=== PATIENT | female | born 2000 | race Caucasian/White ===

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

== ENCOUNTER → 2024-03-17 | Outpatient (CLI) | payer OTHER, MEDICAID, SELFPAY ==
--- NOTE | 2024-03-17 15:29 | US_ITS ---
STUDY: SECOND AND THIRD TRIMESTER OBSTETRICAL ULTRASOUND REASON FOR EXAM: Female, 23 years old Supervision of other high risk pregnancies, first trimester, 10 w LMP: 10/21/2023 TECHNIQUE: Transabdominal TECHNICAL QUALITY: Adequate. PRIOR ULTRASOUND: None. FINDINGS: There is a single intrauterine fetus. The fetus is in a transverse lie with the head on the maternal right side. There is demonstrated cardiac activity with a heart rate of 144 bpm. There is a normal amniotic fluid volume. The largest amniotic fluid pocket measures 3.9 cm. The amniotic fluid index (NAJMA) is cm. The placenta is anterior and low lying but not previa in location. There are Grade 0 placental changes. The cervix measures 3.6 cm in length. The bilateral adnexal regions are normal. BIOMETRY: BPD: 4.7 cm: 20 weeks, 2 days HC: 17.8 cm: 20 weeks, 2 days AC: 15.8 cm: 20 weeks, 6 days FL: 3.4 cm: 20 weeks, 4 days CI: 73.99 FL/BPD: 71.20 FL/HC: 18.80 FL/AC: 21.28 HC/AC: 1.13 age by current US: 20 weeks, 5 days. CATHY by current US: 07/30/2024. Estimated weight: 370 grams, +/- 55 grams, 23 %. age by prior US: weeks, days. CATHY by prior US: . Age by LMP: 21 weeks, 1 days. CATHY by LMP: 07/27/2024. ANATOMY: Gender: Male Cranium: Normal lateral ventricles. Normal choroid plexus. Normal cerebellum. Normal cisterna magna. Normal face, nose and lips. Chest: Normal 4-chamber heart. Abdomen/Pelvis: Normal diaphragm. Normal stomach. Normal abdominal wall. Normal cord insertion. Normal 3 vessel cord. Normal kidneys. Normal bladder. Spine: Normal cervical spine. Normal thoracic spine. Normal lumbar spine. Normal sacrum. Extremities: Normal bilateral upper extremities. Normal bilateral lower extremities. US/OB Anatomy w/ Transvaginal IMPRESSION: Living intrauterine of 20 weeks 5 days as described above. Electronically Signed: Edvin Biswas MD at 13:00 EST , Refer to OB ultrasound. Electronically Signed: Edvin Biswas MD at 13:00 EST ,
== END | disposition home or self-care (01) ==
PROVIDERS: Referring Provider Advanced Practice Midwife; Visit Provider Advanced Practice Midwife
DX: O09.891 Supervision of other high risk pregnancies, first trimester (principal); Z3A.10 10 weeks gestation of pregnancy
CPT/HCPCS: 76805; 76817

== ENCOUNTER 2024-06-27 16:02 | Inpatient (IN) | payer OTHER, MEDICAID, SELFPAY ==
[2024-06-27] VITALS (27 sets, daily range): BP systolic 102–156; BP diastolic 69–99; PULSE 60–90; RESP 12–21; TEMP 36.3–37.1; O2SAT 97–100; BMI 31.4
[2024-06-27 12:19] LABS: Hematocrit 35.2 % (37-47); Hemoglobin 12.2 g/dL (12.0-15.0); Mean Corp Hgb Conc 34.7 g/dL (32-36); Mean Corpuscular Volume 86.7 fL (81-99); Mean Platelet Vol. 11.1 fl (6.2-12.0); Platelet Count 204 K/mm3 (150-450); RBC Distribution Width CV 12.8 % (11.6-14.6); RBC Distribution Width SD 39.8 fl (35.1-43.9); Red Blood Count 4.06 M/mm3 (4.2-5.4); White Blood Count 7.3 K/mm3 (4.4-11.0)
[2024-06-27 12:29] LABS: AST(SGOT) 18 U/L (<=31); Alanine Aminotransfer ALT/SGPT 14 U/L (<=34); Creatinine, Serum 0.69 mg/dL (0.70-1.20); EST Glomerular Filtration Rate 124 (>60); Estimated Creatinine Clearance 135.94 ml/min (50-250)
[2024-06-27 12:46] LABS: Uric Acid 5.7 mg/dL (2.6-6.0)
[2024-06-27 12:57] LABS: Protein:Creat Ratio 3651 mg/g CRE (0-200)
[2024-06-27] MEDS: Betamethasone/Betamethasone 30 MG/5 ML Vial 12 MG IM (14:49)
--- NOTE | 2024-06-27 15:34 | PCM.HP.OB ---
HPI - General General Date of Service: 06/27/24 Chief Complaint: elevated blood pressure and headache HPI Narrative ILANA BIGGS, is a 24 F who presents from home with a headache and elevated blood pressure. She reports she has had mild FONSECA's daily for 1 week. She did not have her caffeine this morning, which usually helps. The FONSECA is still mild and not bothersome for her. She denies vision changes, RUQ pain, nausea, vomiting. No pain, vb, lof. Good FM. PFSH PFSH Home Medications ?Medication ?Instructions ?Recorded ?Last Taken ?Type Ortho Tri-Cyclen 28 Tablet 1 tab PO DAILY 01/21/15 Unknown History Allergy/AdvReac Type Severity Reaction Status Date / Time Sulfa (Sulfonamide Allergy Hives Verified 06/27/24 11:56 Antibiotics) Social History Smoking Status: Unknown if ever smoked NST FHR Rate Baby A Baseline: 140 Variability:: Minimal and Moderate Accelerations:: 15 x 15 Decelerations:: Variable (isolated) Uterine Activity:: no ctx's Vital Signs Vital Signs Vital Signs: 06/27/24 11:54 06/27/24 11:54 06/27/24 11:54 Temperature Temperature Source Temporal Pulse Rate 69 Respiratory Rate Blood Pressure 132/86 H BP Systolic 132 BP Diastolic 86 Pulse Ox 06/27/24 11:54 06/27/24 11:54 06/27/24 11:55 Temperature 98.3 F Temperature Source Pulse Rate 72 Respiratory Rate 17 Blood Pressure BP Systolic BP Diastolic Pulse Ox 06/27/24 11:55 06/27/24 12:09 06/27/24 12:09 Temperature Temperature Source Pulse Rate 67 Respiratory Rate Blood Pressure 131/89 H BP Systolic 131 BP Diastolic 89 Pulse Ox 98 06/27/24 12:26 06/27/24 12:26 06/27/24 12:39 Temperature Temperature Source Pulse Rate 60 Respiratory Rate Blood Pressure 138/88 H 156/95 H BP Systolic 138 156 BP Diastolic 88 95 Pulse Ox 06/27/24 12:39 06/27/24 12:48 06/27/24 12:48 Temperature Temperature Source Pulse Rate 61 70 Respiratory Rate Blood Pressure 142/89 H BP Systolic 142 BP Diastolic 89 Pulse Ox 06/27/24 12:54 06/27/24 12:54 06/27/24 13:09 Temperature Temperature Source Pulse Rate 64 Respiratory Rate Blood Pressure 136/87 H 145/94 H BP Systolic 136 145 BP Diastolic 87 94 Pulse Ox 06/27/24 13:09 06/27/24 13:26 06/27/24 13:26 Temperature Temperature Source Pulse Rate 66 67 Respiratory Rate Blood Pressure 141/92 H BP Systolic 141 BP Diastolic 92 Pulse Ox 06/27/24 14:53 06/27/24 14:53 Temperature Temperature Source Pulse Rate 63 Respiratory Rate Blood Pressure 126/80 H BP Systolic 126 BP Diastolic 80 Pulse Ox Weight Weight: 189 lb Body Mass Index (BMI) 31.4 Labs Labs Labs: Hct 35.2 % (37-47) L Hgb 12.2 g/dL (12.0-15.0) Obstetrics Ultrasound Assessment & Plan (1) 35 weeks gestation of : (2) IUGR (intrauterine growth restriction): PLAN: EFW on 06/17/24 was 1781 grams at the 2% and AC 1% CEFM (3) Elevated blood pressure reading: PLAN: BP's normal to mild range. P/c ratio elevated. No evidence for severe pre eclampsia at this time. Admit for close observation of BP's and symptoms. BMZ for lung maturity. SCD's for DVT prophylaxis. Ok for regular diet since BP's normal to mild range. Update given to Dr. Lind provider second class welder who will contact [facility] for any further recommendations, and delivery timing. Dr. Lind resuming care. (4) History of section: PLAN: Planning repeat C/S (5) Headache:
[2024-06-27] MEDS: Lactated Ringers 1,000 ML 999 ML IV (16:50)
[2024-06-27] MEDS: Acetaminophen 500 MG Tablet 1000 MG PO ×2 (16:53→23:24)
[2024-06-27 17:12] LABS: Absolute Lymphocyte Count 1.85 X10^3/uL (0.83-4.51); Absolute Neutrophil Count 9.1 X10^3/uL (2.0-7.7); Basophil# 0.03 X10^3/uL; Basophil% 0.3 % (0-1); Eosinophil# 0.13 X10^3/uL; Eosinophils% 1.1 % (0-5); Hematocrit 37.9 % (37-47); Hemoglobin 13.5 g/dL (12.0-15.0); Lymphocyte # 1.85 X10^3/ul (0.83-4.51); Lymphocyte % 16.1 % (19-41); Mean Corp Hgb Conc 35.6 g/dL (32-36); Mean Corpuscular Hgb 30.3 pg (27.0-32.0); Mean Corpuscular Volume 85.2 fL (81-99); Mean Platelet Vol. 11.2 fl (6.2-12.0); Monocyte# 0.33 X10^3/uL; Monocyte% 2.9 % (0-10); NRBC Flagged by Analyzer 0 % (0-5); Neutrophil # 9.07 X10^3/uL (2.7-7.7); Neutrophil % 79.1 % (47-70); Platelet Count 230 K/mm3 (150-450); RBC Distribution Width CV 12.9 % (11.6-14.6); RBC Distribution Width SD 39.8 fl (35.1-43.9); Red Blood Count 4.45 M/mm3 (4.2-5.4); White Blood Count 11.5 K/mm3 (4.4-11.0)
--- NOTE | 2024-06-27 18:00 | PCM.PN.BLA ---
Progress Note pt admitted for mild range BPs with mild FONSECA after tylenol. IUGR 2% with AC 2%. FHR tracing with minimal variability- episodes of moderate but did have 2 varibale decelerations noted. Plan for repeat CS- MFM Dr. Davila in agreement. Pt was counseled on risks/benefits. all questions answered.
[2024-06-27 18:08] LABS: Syphilis Antibodies Nonreactive (Nonreactive)
[2024-06-27] MEDS: Cefazolin 2 GM in Syringe IV (18:10)
--- NOTE | 2024-06-27 18:25 | PLAC_PTH ---
PATIENT: ILANA BIGGS LOC: [facility] U#:[id number] AGE/SX: 24 ROOM: WP012 RE06/27/[address]: Dr. Shantell Kruger, : 2000 BED: 1 DIS: 06/30/2024 SPEC #: [id number] RECD: 06/27/24 20:30 STATUS: YOU JUAN F #: [id number] LAVELL: 06/27/24 18:[address]: Vanessa Mahajan DEPT: SURGICAL PATHOLOGY RECD BY: Carmen Parker ENTERED: 06/30/24 08:33 SP TYPE: PLACENTA OTHR DR: Dr. Shantell Kruger, DO No Primary Care Phys Tissues: A - Placenta, NOS Procedures: Surgery Specimen Level V HEADER OPERATION: Repeat section PRE-OP DIAGNOSIS: TISSUE SUBMITTED: A- Placenta MICROSCOPIC DIAGNOSIS A. Placenta, (35 weeks), repeat section: * Elizabeht placenta (293 grams) - see note. * 3 vessel umbilical cord without inflammation. * Chorioamnion without inflammation. * Mature chorionic villi with focal infarction (involving less than 5% of the disc), with increased syncytial knots. Note: The weight is approximately the 10th percentile for 35 weeks gestation. MICROSCOPIC DESCRIPTION Slides are reviewed. GROSS DESCRIPTION A. Received in formalin in a container labeled with the patient's name, date of , and with no further designation is a 17.5 x 11.0 x 2.0 cm elizabeth discoid placenta with a trimmed weight of 293 g. The eccentrically located white-martinez umbilical cord exhibits 3 vessels and is 40.0 cm in length by 1.0 cm in diameter. The pink-reyes membranes exhibit 50% marginal insertion and 50% circummarginate insertion. The surface is blue-okeefe with prominent vasculature. The opposing maternal surface exhibits red-okeefe cotyledons that appear complete with a moderate amount of easily removed blood clot material. Serial sections reveal 3 white-martinez, irregular, rubbery foci ranging from 0.8 x 0.7 x 0.7 cm to 2.5 x 1.3 x 1.0 cm (comprising less than 5% of the parenchymal surfaces). The remaining cut surfaces are red and spongy. Tub Tender sections:A1. Umbilical cord and membrane rollA2. Normal full-thickness sectionA3. Full-thickness section with rubbery focus at peripheryA4. Full-thickness section with rubbery focus at midpoint [facility] 06-30-2024 CPT:95455
--- NOTE | 2024-06-27 18:43 | EX.PCM.OBRPT ---
Operative Report (OB) Details Procedure Type: low transverse Date of Procedure: 06/27/24 Procedure Start Time: 18:22 Procedure Stop Time: 18:50 Time of Delivery: 18:25 Pre-Operative Diagnosis: Repeat Elective , Nonreassuring Status and Other Other Pre-Operative diagnosis: 35 weeks, Pre eclampsia w/o severe features , severe IUGR 2%, Cat 2 FHR Post-Operative Diagnosis: Same as Pre-operative diagnosis Classification: BRIDGET Type of Anesthesia: Spinal Antibiotic Given: Ancef 2 grams IV x1 Drain: Park to straight drain Estimated Blood Loss: 500 Fluids Replaced: 1000 Findings Description of surgery: After informed consent was obtained the patient was taken the operating room she was given spinal anesthesia. She was then placed in the supine position. She was prepped and draped in the normal sterile fashion. Anesthesia was found to be adequate. At this time a Pfannenstiel skin incision was made with a knife was carried down to the underlying layer of the fascia. The fascial incision was then extended laterally using price scissor. Attention was then turned to the superior aspect of the fascial edge was grasped with 2 straight Rohith clamps tented up and the rectus muscle dissected off sharply.. Rectus muscles were then in the midline bluntly and peritoneum was entered bluntly. Gentle opposing traction was placed. At this time the vesicouterine peritoneum was identified. Scalpel was used to make a uterine incision in a low transverse fashion. The uterus was then entered bluntly gentle opposing traction was placed to extend this incision. Membranes were ruptured clear. Infant's head was brought to the uterine incision was delivered atraumatically. 2 loose nuchals were noted and reduced. delayed cord clamping performed for approximately 30 seconds. was vigorous at delivery with good tone. Cord was clamped and cut was handed to the waiting nursery team. The Placenta was removed from the uterus. The uterus was then removed from the abdominal cavity. The uterus was cleared of all clots and debris using a lap. At this time the uterine incision was reapproximated using #1 Vicryl in a running locked fashion. Hemostasis was appreciated. Posterior cul-de-sac was then cleared of all clots and debris. Uterus was placed back in the abdominal cavity. Gutters were cleared of all clots and debris. Uterine incision was reevaluated and noted to be of excellent hemostasis. At this time the peritoneum was grasped with Kellys reapproximated using #2 Vicryl suture in a running fashion. Fascia was then reapproximated using #1 Vicryl in a running fashion. Subcu layer was irrigated with NS, reapproximated with #2 0 plain gut suture in an interrupted fashion. Subcu layer was closed using 4-0 Monocrylin a subcu fashion. Dry sterile dressing was applied. Instrument lap needle count correct ?2. Anticipated normal postoperative course. Surgical findings: normal tubes and ovaries Presentation: Vertex Amniotic Membrane Rupture Type: Artificial Amniotic Fluid Description: Clear Placental Delivery Description: Expressed Placenta Disposition: Sent to Pathology Specimen collected: Yes Description of specimen(s) removed: placenta Cord Vessel Description: 3 Vessels Cord Entanglement: Around neck x 2, loose Nuchal Cord Compression: With compression Cord Gases: ABG and VBG Infant A gender: Male (1 minute): 8 (5 minute): 9 Delayed Cord Clamping: Yes Handkerchief Sample Clerk raspberry checker: Yes Vocational Training Director: Shireen Gross Tasks completed by residential living assistant: Opening & closing, Dissecting tissue and Retracting Complications Complications: No
[2024-06-27] MEDS: Oxytocin 15 Units/NS 250ml 15 UNITS/250 ML IV.SOLN 83 UNITS IV (19:05)
[2024-06-27] MEDS: Ketorolac 30 MG/ML Syringe IV (19:24)
[2024-06-28] VITALS (15 sets, daily range): BP systolic 108–163; BP diastolic 65–94; PULSE 70–84; RESP 16–19; TEMP 36.6–37.2; O2SAT 98–99
[2024-06-28] MEDS: 0.9% Saline Lock 10 ML Syringe IV ×4 (01:29→16:11)
[2024-06-28] MEDS: Ketorolac 30 MG/ML Syringe IV ×3 (01:30→16:04)
[2024-06-28] MEDS: Acetaminophen 500 MG Tablet 1000 MG PO ×3 (06:31→19:55)
[2024-06-28] MEDS: Enoxaparin 40 MG/0.4 ML Syringe SC (06:31)
--- NOTE | 2024-06-28 08:00 | PCM.PN.CNM ---
Subjective Subjective Patient seen at bedside. Denies headache, vision changes, SOB or CP. Ambulating and voiding without difficulty. Passing flatus. Lochia decreased. Objective Data Objective Data Vital Signs: Vital Signs Temp Pulse Resp BP Pulse Ox O2 Del Method 98 F 80 19 H 108/73 99 Room Air 06/28/24 03:40 06/28/24 03:40 06/28/24 03:40 06/28/24 03:40 06/28/24 03:40 06/28/24 03:40 Oxygen Delivery Method Room Air Weight: 189 lb Body Mass Index (BMI) 31.4 Intake & Output: Intake and Output for Last 24 Hours 06/26/24 06/27/24 06/28/24 23:59 23:59 23:59 Intake Total 1020 / 1020 250 / 250 Output Total 650 / 650 Balance 370 / 370 250 / 250 Lab / Micro Data Attestation: I reviewed the patient's lab results. 06/27/24 16:50 06/27/24 12:00 Labs: Laboratory Results - last 24 hr 06/27/24 12:00: WBC 7.3, RBC 4.06 L, Hgb 12.2, Hct 35.2 L, MCV 86.7, MCH 30.0, MCHC 34.7, RDW Std Deviation 39.8, RDW Coeff of Lorene 12.8, Plt Count 204, MPV 11.1, Creatinine 0.69 L, Estim Creat Clear Calc 135.94, Est GFR (MDRD) Non-Af 124, Uric Acid 5.7, AST 18, ALT 14, U Random Total Protein 264.0 H, Urine Creatinine 72.30, Protein/Creatinin Ratio 3651 H 06/27/24 16:50: WBC 11.5 H, RBC 4.45, Hgb 13.5, Hct 37.9, MCV 85.2, MCH 30.3, MCHC 35.6, RDW Std Deviation 39.8, RDW Coeff of Lorene 12.9, Plt Count 230, MPV 11.2, Immature Gran % (Auto) 0.500, Neut % (Auto) 79.1 H, Lymph % (Auto) 16.1 L, [place] % (Auto) 2.9, Eos % (Auto) 1.1, Baso % (Auto) 0.3, Absolute Neuts (auto) 9.1 H, Absolute Lymphs (auto) 1.85, Nucleated RBC % 0, Syphilis Total Ab Nonreactive, Blood Type A POSITIVE, Antibody Screen NEGATIVE ROS Eyes Eyes: Denies blurry vision, spots in vision or tunnel vision ENT HEENT: Denies dizziness or headache(s) Cardiovascular Cardiovascular: Reports systems reviewed and no addt'l complaints, except as documented, dizziness and dyspnea Respiratory/Chest Respiratory/Chest: Reports systems reviewed and no addt'l complaints, except as documented Gastrointestinal Gastrointestinal: Reports systems reviewed and no addt'l complaints, except as documented Genitourinary Genitourinary: Reports systems reviewed and no addt'l complaints, except as documented Neurologic Neurologic: Denies abnormal speech, dizziness, headache(s), syncope or vertigo Psychiatric Psychiatric: Reports systems reviewed and no addt'l complaints, except as documented Physical Exam Const alert and no apparent distress General Appearance: cooperative Orientation / Consciousness: awake, oriented to person and oriented to place Exam Limitations: no limitations HEENT normocephalic Eyes General Eye: normal appearance of both eyes Neck full ROM Chest Chest: symmetrical chest wall rise Resp normal respiratory effort, normal air movement and clear to auscultation bilaterally Auscultation: clear to auscultation bilaterally Cardio regular rate and regular rhythm GI normal to inspection, nondistended, normoactive bowel sounds Uterus Palpation: uterus fundus firm Extremity full ROM and no calf tenderness Skin no rashes or lesions noted Neuro oriented x3 Psych mental status grossly normal and activity/motor behavior normal Assessment & Plan (1) Status post delivery: (2) Elevated blood pressure reading: (3) Care and examination of lactating mother: PLAN: Plan POD 1 Repeat C/S Pain control support Blood pressures stable at 108/73- no medications
[2024-06-28] MEDS: Senna/Docusate Sodium 1 Tablet PO (10:47)
[2024-06-28] MEDS: oxyCODONE 5 MG Tablet PO (21:48)
[2024-06-28] MEDS: Ibuprofen 600 MG Tablet PO (22:33)
[2024-06-29] VITALS (9 sets, daily range): BP systolic 127–141; BP diastolic 70–87; PULSE 69–149; RESP 16; TEMP 36.6–37.1; O2SAT 80–100
[2024-06-29] MEDS: Acetaminophen 500 MG Tablet 1000 MG PO ×3 (02:46→16:34)
[2024-06-29] MEDS: Ibuprofen 600 MG Tablet PO ×3 (05:34→20:47)
[2024-06-29] MEDS: Enoxaparin 40 MG/0.4 ML Syringe SC (06:25)
[2024-06-29] MEDS: oxyCODONE 5 MG Tablet PO ×2 (06:30→14:37)
--- NOTE | 2024-06-29 09:11 | PCM.PN.CNM ---
Subjective Subjective Patient seen at bedside. Denies headache, vision changes, SOB or CP. Ambulating and voiding without difficulty. Passing flatus. Lochia decreased. Baby remain in SCN but is stable. Patient without difficulty. Objective Data Objective Data Vital Signs: Vital Signs Temp Pulse Resp BP Pulse Ox O2 Del Method 98.7 F 74 16 128/75 H 99 Room Air 06/29/24 02:45 06/29/24 02:45 06/29/24 02:45 06/29/24 02:45 06/29/24 02:45 06/29/24 02:45 Oxygen Delivery Method Room Air Weight: 189 lb Body Mass Index (BMI) 31.4 Intake & Output: Intake and Output for Last 24 Hours 06/27/24 06/28/24 06/29/24 23:59 23:59 23:59 Intake Total 1020 / 1020 250 / 250 Output Total 650 / 650 400 / 400 Balance 370 / 370 -150 / -150 Lab / Micro Data Attestation: I reviewed the patient's lab results. 06/27/24 16:50 06/27/24 12:00 ROS Eyes Eyes: Denies blurry vision, spots in vision or tunnel vision ENT HEENT: Denies dizziness or headache(s) Cardiovascular Cardiovascular: Reports systems reviewed and no addt'l complaints, except as documented, dizziness and dyspnea Respiratory/Chest Respiratory/Chest: Reports systems reviewed and no addt'l complaints, except as documented Gastrointestinal Gastrointestinal: Reports systems reviewed and no addt'l complaints, except as documented Genitourinary Genitourinary: Reports systems reviewed and no addt'l complaints, except as documented Neurologic Neurologic: Denies abnormal speech, dizziness, headache(s), syncope or vertigo Psychiatric Psychiatric: Reports systems reviewed and no addt'l complaints, except as documented Physical Exam Narrative Dressing dry and intact Const alert and no apparent distress General Appearance: cooperative Orientation / Consciousness: awake, oriented to person and oriented to place Exam Limitations: no limitations HEENT normocephalic Eyes General Eye: normal appearance of both eyes Neck full ROM Chest Chest: symmetrical chest wall rise Resp normal respiratory effort, normal air movement and clear to auscultation bilaterally Auscultation: clear to auscultation bilaterally Cardio regular rate and regular rhythm GI normal to inspection, nondistended, normoactive bowel sounds Uterus Palpation: uterus fundus firm Extremity full ROM and no calf tenderness Skin no rashes or lesions noted Neuro oriented x3 Psych mental status grossly normal and activity/motor behavior normal Assessment & Plan (1) Care and examination of lactating mother: (2) Status post delivery: (3) 35 weeks gestation of : (4) IUGR (intrauterine growth restriction): (5) Elevated blood pressure reading: PLAN: Plan POD 2 Repeat C/S Pain controlled Pumping and taking to [facility] for baby Blood pressures - 120-130's /70's- no severe range pressures Anticipate discharge home / hotel tomorrow
[2024-06-29] MEDS: Senna/Docusate Sodium 1 Tablet PO (09:43)
[2024-06-29] MEDS: Furosemide 20 MG Tablet PO (14:32)
[2024-06-30] VITALS (7 sets, daily range): BP systolic 128–137; BP diastolic 70–97; PULSE 73–87; RESP 16; TEMP 36.7–36.9; O2SAT 98–99
[2024-06-30] MEDS: Acetaminophen 500 MG Tablet 1000 MG PO ×4 (00:26→17:43)
[2024-06-30] MEDS: Ibuprofen 600 MG Tablet PO ×3 (03:22→15:30)
[2024-06-30] MEDS: Enoxaparin 40 MG/0.4 ML Syringe SC (06:17)
[2024-06-30] MEDS: oxyCODONE 5 MG Tablet PO ×2 (08:02→16:57)
--- NOTE | 2024-06-30 08:18 | PCM.PN.OB ---
Subjective Subjective Doing well per patient and nursing staff. Ambulating and taking PO without difficulty. Voiding and passing flatus. Pain controlled. , services for assistance. Denies headache, visual changes, chest pain, shortness of breath, leg pain or increased bleeding. Lochia normal. Objective Data Objective Data Vital Signs: Vital Signs Temp Pulse Resp BP Pulse Ox O2 Del Method 98.3 F 79 16 131/70 H 98 Room Air 06/30/24 03:20 06/30/24 03:20 06/30/24 03:20 06/30/24 03:20 06/30/24 03:20 06/30/24 03:20 Oxygen Delivery Method Room Air Weight: 189 lb Body Mass Index (BMI) 31.4 Intake & Output: Intake and Output for Last 24 Hours 06/28/24 06/29/24 06/30/24 23:59 23:59 23:59 Intake Total 250 / 250 Output Total 400 / 400 2500 / 2500 Balance -150 / -150 -2500 / -2500 Lab / Micro Data 06/27/24 16:50 06/27/24 12:00 ROS Constitutional Constitutional: Reports systems reviewed and no addt'l complaints, except as documented; Denies headache(s) Eyes Eyes: Denies acute decrease in peripheral vision, blurry vision or change in vision ENT HEENT: Reports systems reviewed and no addt'l complaints, except as documented Cardiovascular Cardiovascular: Denies chest pain or dizziness Respiratory/Chest Respiratory/Chest: Denies cough, dyspnea, dyspnea on exertion, shortness of breath at rest or shortness of breath with exertion Gastrointestinal Gastrointestinal: Denies abdominal pain, diarrhea, nausea or vomiting Genitourinary Genitourinary: Denies abdominal discomfort Musculoskeletal Musculoskeletal: Denies limited range of motion Integumentary Integumentary: Reports systems reviewed and no addt'l complaints, except as documented Neurologic Neurologic: Reports systems reviewed and no addt'l complaints, except as documented Psychiatric Psychiatric: Reports systems reviewed and no addt'l complaints, except as documented Endocrine Endocrinology: Reports systems reviewed and no addt'l complaints, except as documented Hematologic/Lymphatic Hematologic/Lymphatic: Reports systems reviewed and no addt'l complaints, except as documented Allergic/Immunologic Allergic/Immunologic: Reports systems reviewed and no addt'l complaints, except as documented Physical Exam Const alert and oriented x3 General Appearance: cooperative Orientation / Consciousness: awake, oriented to person, oriented to place and oriented to time Exam Limitations: no limitations HEENT normocephalic Head and Scalp: normal to inspection, normocephalic and atraumatic Face and Sinus: normal facial exam Eyes General Eye: normal appearance of both eyes Neck full ROM Chest Chest: symmetrical chest wall rise Resp normal respiratory effort and normal air movement Auscultation: clear to auscultation bilaterally Cardio regular rate, regular rhythm, S1 normal heart sound, S2 normal heart sound, no murmurs, no rub, no gallops and no clicks GI normal to inspection, nondistended, normoactive bowel sounds and non-tender GI Narrative: dressing dry and intact appearance of the vagina normal Bladder / Kidney Exam: no CVA tenderness Back/Spine normal ROM Extremity normal to inspection and full ROM Skin no rashes or lesions noted Neuro oriented x3, CN's II-XII intact bilaterally and moves all extremities Sensorium / Orientation: awake, alert and oriented to person Motor Exam: clonus absent Deep Tendon Reflexes: Rt Patellar (L4): 2+ and Lt Patellar (L4): 2+ Assessment & Plan (1) Care and examination of lactating mother: (2) Status post delivery: (3) Elevated blood pressure reading: (4) History of section: PLAN: Plan 1) D/C home 2) Follow up 1wk PP for BP and incision check 3) services
--- NOTE | 2024-06-30 08:18 | PCM.DC.SUM ---
Providers Date of Admission: 06/27/24 Primary Care Physician: Kerry Primary Care Phys Reason For Visit: REPEAT C SECTION Diagnosis Discharge Diagnosis (1) Care and examination of lactating mother: Status: Acute Code(s): Z39.1 - Encounter for care and examination of lactating mother (2) Status post delivery: Status: Acute Code(s): Z98.891 - History of uterine scar from previous surgery (3) 35 weeks gestation of : Status: Acute Code(s): Z3A.35 - 35 weeks gestation of (4) IUGR (intrauterine growth restriction): Status: Acute (5) Elevated blood pressure reading: Status: Acute Code(s): R03.0 - Elevated blood-pressure reading, without diagnosis of hypertension Hospital Course Summary of Care Provided Minutes Spent on Discharge: 15 Hospital Course: Presented on 06/27/24 for Low transverse section. IUGR and elevated blood pressure. course uncomplicated. D/C home on POD #3. Weight / BMI Weight Weight: 189 lb Body Mass Index (BMI) 31.4 ABG / Lab / Microbiology Data 06/27/24 16:50 06/27/24 12:00 D/C Instructions Discharge Diet: No restrictions May resume sexual activity in: 6 weeks Weight Bearing Status: Full weight bearing Lifting Restricted to (Lbs): 20 Call your doctor if your incision/area has: Continuous Slow Oozing, Sudden Increased Bleeding, Increased Pain/ Swelling, Increased Redness, Foul Smelling Discharge and Swelling at the incision site Call your doctor if you observe: Fever of 101 or Higher, Inability to urinate, Inability to have a bowel movement, Using more than 1 pad per hour, Shortness of breath, Dizziness, Fainting spells, Chest pain, Increased palpitations (irregular heartbeat), Calf discomfort and Uncontrolled pain Suture Line Care: Avoid Pulling/Pushing Remove Dressing in: 1 week Cleanse incision/area with: Keep Dressing Clean & Dry DC O2, CPAP, BIPAP Needs Home O2 Discharge instructions: No Meaningful Use Info Meaningful Use Meaningful Use Diagnoses (Choose all that apply): None applicable Ischemic Stroke Statin Dosing Therapy Reference: STATIN DOSE THERAPY REFERENCE: * Patients > 75 years receive moderate or high dose statin therapy. * Patients 75 years or YOUNGER should receive HIGH intensity statin dose unless contraindicated. You will be required to document reason for non-treatment if statin daily dose does not meet guidelines. HIGH DOSE STATIN THERAPY DAILY Atorvastatin > than or = to 40 mg Rosuvastatin > than or = to 20 mg Amlodipine + Atorvastatin > than or = to 2.5/40 mg Ezetimibe + Simvastatin 10/80 mg Simvastatin 80mg Discharge Plan Admission Admit Date/Time: 06/27/24 16:02 Primary Reason for Your Visit: Section Attending Provider: Shantell Kruger Primary Care Provider: Avni PhysicianKerry Primary Instructions Patient Instructions: After a Delivery (WP) Discharge Orders/Prescriptions Referrals / Follow Up: Care Physician,No Primary [Primary Care Provider] - Shantell Kruger DO [Med Staff - Active Staff] - Disposition Disposition (needs filled in before D/C Order can be placed): Home, Self Care
[2024-06-30] MEDS: Senna/Docusate Sodium 1 Tablet PO (12:21)
--- NOTE | 2024-07-04 19:04 | NURSING ---
Follow up phone call: Done in person in [facility]. Patient reports her incision looks great and she is feeling well. She truly appreciates all the staff during her stay and hotel stay with [facility]. Patient reports no s+s of pp complications. Her vaginal bleeding is almost finished. is doing well in special care. She was VERY satisfied with her care.
[2024-07-29 11:21] LABS: Pathology Specimen OB SEE PATHOLOGY REPORT
== END 2024-06-30 18:00 | disposition home or self-care (01) | DRG 788 ==
LOC: WPOUT 16:15 → WP 16:53
PROVIDERS: Advanced Practice Midwife; Admitting Provider Obstetrics & Gynecology; Referring Provider Obstetrics & Gynecology; Visit Provider Obstetrics & Gynecology
DX: O14.04 Mild to moderate pre-eclampsia, complicating childbirth (principal); O60.14X0 Preterm labor third trimester with preterm delivery third trimester, not applicable or unspecified; O36.5930 Maternal care for other known or suspected poor fetal growth, third trimester, not applicable or unspecified; O34.219 Maternal care for unspecified type scar from previous cesarean delivery; O76 Abnormality in fetal heart rate and rhythm complicating labor and delivery; O69.1XX0 Labor and delivery complicated by cord around neck, with compression, not applicable or unspecified; Z37.0 Single live birth; Z3A.35 35 weeks gestation of pregnancy
CPT/HCPCS: 59025; 59050; 82565; 82570; 84156; 84450; 84460; 84550; 85025; 85027; 86780; 86850; 86900; 86901; 88307; 99221; A4216; G0378; J0702; J2405